=== PATIENT | female | born 1960 | race African-American/Black ===

== ENCOUNTER 2016-08-25 21:47 | Emergency (ER) | payer OTHER ==
[~2016-08-25] VITALS: Ht 160 cm; Wt 61.2 kg
[~2016-08-25 21:47] MED LIST: COLACE100 MG ORAL; ECOTRIN81 MG ORAL; IBUPROFEN600 MG ORAL; LEVAQUIN500 MG ORAL; LIPITOR10 MG ORAL
[2016-08-25] MEDS ORDERED: Tylenol #3 tab (300mg/30mg) ORAL ONE (23:00)
[2016-08-25] MEDS ORDERED: NKM (23:13)
[2016-08-26] MEDS ORDERED: ACETAMINOPHEN-1 EAC1 ORAL (00:15)
[2016-08-26] MEDS ORDERED: VENTOLIN HFA18 GM INH (00:15)
[2016-08-26 00:26] VITALS: BP_SYST 133; BP_SYST 141; BP_DIAS 63; BP_DIAS 68
--- NOTE | 2016-08-26 03:54 | Emergency Room Report ---
History of Present Illness General Chief Complaint: Upper Respiratory Illness Source: Patient Present Illness HPI 56 YO F presents with headache after accidental slip and fall in bathroom earlier. States LOC for "1 second." Not on ASA or AC. Denies blurry/change of vision, nausea/vomiting, focal weakness. Also, c/o cough for 4 weeks. Not asthmatic, non-smoker. Denies chest pain, SOB. Taking "Vitamin C" only. 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) Review of Systems All Other Systems: negative except mentioned in HPI Physical Exam Vital Signs Date Time Temp Pulse Resp B/P Pulse Ox O2 Delivery O2 Flow Rate FiO2 08/25/16 22:07 98.1 100 14 141/68 99 Room Air Sp02 EP Interpretation: reviewed, normal General Appearance: normal inspection, well appearing, no apparent distress, alert, GCS 15, non-toxic Head: normocephalic, atraumatic Eyes: bilateral eye EOMI, bilateral eye PERRL ENT: normal ENT inspection, hearing grossly normal, normal voice Neck: normal inspection, full range of motion, supple, no bony tend Respiratory: normal inspection, lungs clear, normal breath sounds, no rhonchi, no respiratory distress, no retraction, no accessory muscle use, no wheezing Cardiovascular #1: regular rate, rhythm, no edema Gastrointestinal: normal inspection, normal bowel sounds, non tender, soft, no guarding, no hernia Genitourinary: no CVA tenderness Neurologic: normal inspection, alert, oriented x3, responsive, 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 tested, motor strength/tone normal, speech normal Psychiatric: normal inspection, judgement/insight normal, mood/affect normal Skin: normal inspection, normal color, no rash Lymphatic: normal inspection Medical Decision Making Diagnostic Impression: Primary Impression: Contusion Qualified Codes: S00.93XA - Contusion of unspecified part of head, initial encounter Additional Impression: Upper respiratory infection Qualified Codes: J06.9 - Acute upper respiratory infection, unspecified; B97.89 - Other viral agents as the cause of diseases classified elsewhere ER Course 56 YO F with contusion to back of head. VSS. Afebrile. CT head negative for acute trauma Lungs CTAB, I doubt PNA Possible chronic bronchitis - Rx T#3, ventolin, PMD followup DC Home Last Vital Signs Date Time Temp Pulse Resp B/P Pulse Ox O2 Delivery O2 Flow Rate FiO2 08/26/16 00:26 98.1 14 141/68 99 Room Air 08/26/16 00:26 89 Status: improved Disposition: HOME, SELF-CARE Condition: Improved Scripts Albuterol Sulfate (VENTOLIN HFA) 18 Gm Hfa.aer.ad 2 PUFFS INH EVERY 6 HOURS, #18 GM 0 Refills Prov: GEORGINA RUFF M.D. 08/26/16 Acetaminophen With Codeine (T#3) (TYLENOL #3 TAB*) Y Tab 1 TAB ORAL Q8H Y for For Pain, #20 TAB Prov: GEORGINA RUFF M.D. 08/26/16 Patient Instructions: Upper Respiratory Infection, Adult, Concussion, Adult, [id number] Additional Instructions: -Take albuterol and/or tylenol #3 as needed for cough, chest pain - Follwo up with your doctor in 2-3 days GEORGINA RUFF M.D. Aug 26, 2016 03:54
--- NOTE | 2016-08-26 09:52 | Diagnostic Imaging Report ---
Indication: PAIN Technique: spiral acquisitions obtained through the brain. Angled axial and coronal 5 x 5 mm slices were reconstructed. No IV contrast utilized. Radiation dose was minimized using automated exposure control Total dose length product mGycm. CTDIvol(s) 70 mGy Comparison: none FINDINGS: No wound specialist image is provided. No acute hemorrhage or edema. No mass effect or midline shift. There is mild age-related enlargement of the ventricles and extra axial CSF spaces. There is periventricular deep white matter ischemic change. Questionable lacunar infarct versus artifact seen within the left nathaniel. Normal yan-white differentiation. Visualized orbits are unremarkable. Visualized sinuses are unremarkable. Intact calvarium. IMPRESSION: Chronic and age-related changes. Negative for acute intracranial bleed or mass effect This agrees with the preliminary interpretation provided overnight by [facility]. The CT scanner at [facility] is accredited by the [employer] and the scans are performed using protocols designed to limit radiation exposure to as low as reasonably achievable to attain images of sufficient resolution adequate for diagnostic evaluation
== END 2016-08-26 00:31 | disposition home or self-care (01) ==
LOC: EMR 22:48
DX: S00.83XA Contusion of other part of head, initial encounter (principal); W01.0XXA Fall on same level from slipping, tripping and stumbling without subsequent striking against object, initial encounter; Y92.002 Bathroom of unspecified non-institutional (private) residence as the place of occurrence of the external cause; J06.9 Acute upper respiratory infection, unspecified; R51 Headache; Z88.0 Allergy status to penicillin; Z88.6 Allergy status to analgesic agent
CPT/HCPCS: 70450; 99284

== ENCOUNTER 2018-09-19 14:12 | Emergency (ER) | payer OTHER ==
[~2018-09-19] VITALS: Ht 160 cm; Wt 64.4 kg
[~2018-09-19 14:12] MED LIST changes: +ACETAMINOPHEN-1 EAC1 ORAL; +CLINDAMYCIN HC300 MG ORAL; +MUPIROCIN22 GM TOPIC; +NKM; +VENTOLIN HFA18 GM INH
[2018-09-19 14:35] VITALS: BP 154/74
--- NOTE | 2018-09-19 14:35 | NUR ---
ED Nurse Note: PT WALKED IN TO ER TODAY FROM HOME. AOX4. PT C/O PERSISTENT PAINFUL BLISTER, PAIN 7/10 ON LEFT RING FINGER WELL RASH-LIKE APPEARANCE TO DORSAL SURFACE OF LEFT HAND. PT STATES SHE WAS SEEN AT [facility] EARLIER THIS MONTH FOR THE SAME SYMPTOMS.
--- NOTE | 2018-09-19 15:42 | Emergency Room Report ---
History of Present Illness General Chief Complaint: Skin Rash/Abscess Source: Patient Present Illness Allergies: Coded Allergies: PENICILLINS (Verified Allergy, Severe, Hives, 02/07/15) MORPHINE (Verified Adverse Reaction, Intermediate, Hallucinations, 02/07/15 ) Patient History Now: No Nursing Documentation-PMH Past Medical History: No History, Except For Hx Cardiac Problems: No Hx Gastrointestinal Problems: No Hx Neurological Problems: Yes Hx Cerebrovascular Accident: Yes - 2011 (left sided weakness) Physical Exam Vital Signs Date Time Temp Pulse Resp B/P (MAP) Pulse Ox O2 Delivery O2 Flow Rate FiO2 09/19/18 14:29 98.1 91 20 163/78 98 Room Air Medical Decision Making PA Attestation Dr. dumont is my supervising Physician whom patient management has been discussed with. Diagnostic Impression: Primary Impression: Burn Additional Impression: Rash and other nonspecific skin eruption ER Course Pt. presents to the ED c/o rash on [ ] x [ ] days Ddx considered but are not limited to cellulitis, scabies, shingles, varicella, dermatitis, urticaria, eczema, tinea, viral exanthem, SJS Vital signs: are WNL, pt. is afebrile H&PE are most consistent with [ ] ORDERS: none required at this time, the diagnosis is clinical ED INTERVENTIONS: None required at this time. DISCHARGE: At this time pt. is stable for d/c to home. Will provide printed patient care instructions, and any necessary prescriptions. Care plan and follow up instructions have been discussed with the patient prior to discharge. Last Vital Signs Date Time Temp Pulse Resp B/P (MAP) Pulse Ox O2 Delivery O2 Flow Rate FiO2 09/19/18 14:29 98.1 91 20 163/78 98 Room Air Disposition: HOME, SELF-CARE Condition: Stable Referrals: NON PHYSICIAN (PCP) Patient Instructions: Burn Care, [id number], Rash Additional Instructions: Take medications as directed. Follow up with a Primary Care Provider in 3-5 days for DERMATOLOGY REFERRAL , even if your symptoms have resolved. --Please review list of primary care clinics, if you do not already have a primary care provider Return sooner to ED if new symptoms occur, or current symptoms become worse. - Please note that this Emergency Department Report was dictated using [employer] Interactive[employer] collector technology software, occasionally this can lead to erroneous entry secondary to interpretation by the dictation equipment. Iliana Clark Sep 19, 2018 15:42
[2018-09-19] MEDS ORDERED: SILVADENE20 GM TP (15:45)
[2018-09-19] MEDS ORDERED: CEPHALEXIN500 MG ORAL (15:45)
--- NOTE | 2018-09-19 16:11 | NUR ---
ED Nurse Note: pt discharge instruction provided w/ prescription, pt wound care done prior to dischareg, pt advised to follow up with pcp, pt education done via discussion and handout, wristband removed, pt verbalized understanding and agrees with plan.
[2018-09-19 16:12] VITALS: BP 140/74
== END 2018-09-19 16:16 | disposition home or self-care (01) ==
LOC: EMR 15:23
DX: T23.232A Burn of second degree of multiple left fingers (nail), not including thumb, initial encounter (principal); X08.8XXA Exposure to other specified smoke, fire and flames, initial encounter; Y92.9 Unspecified place or not applicable; R21 Rash and other nonspecific skin eruption; I69.354 Hemiplegia and hemiparesis following cerebral infarction affecting left non-dominant side; Z88.0 Allergy status to penicillin; Z88.5 Allergy status to narcotic agent
CPT/HCPCS: 99282

== ENCOUNTER 2019-09-25 16:32 | Emergency (ER) | payer OTHER ==
[~2019-09-25] VITALS: Ht 160 cm; Wt 59.0 kg
[~2019-09-25 16:32] MED LIST changes: +CEPHALEXIN500 MG ORAL; +SILVADENE20 GM TP
--- NOTE | 2019-09-25 17:44 | NUR ---
ED Nurse Note:protable xray being done
--- NOTE | 2019-09-25 18:05 | NUR ---
ED Nurse Note:pt states smashed left hand in door a week ago and now nail to left ring fingernail is lifting off. pt states hadn is not painful and doesnt want the xray, pt refused it. abrasion noted to left hand pt has cleansed and wrapped it all week
[2019-09-25 18:08] VITALS: BP 164/87
[2019-09-25] MEDS ORDERED: Bacitracin Oint UD TOPIC ONE (18:30)
[2019-09-25] MEDS ORDERED: Lidocaine 2% MPF 5ml Vial INJ ONE (18:30)
--- NOTE | 2019-09-25 18:41 | NUR ---
ED Nurse Note: pt with fingernail soaking to prepare for removal
[2019-09-25 19:35] VITALS: BP 155/82
--- NOTE | 2019-09-25 19:35 | Emergency Room Report ---
History of Present Illness General Chief Complaint: Upper Extremity Injury Source: Patient Present Illness HPI 59-year-old female presents to the emergency department complaining of 3 out of 10 severity pain, tenderness and deformity to the left ring finger x4 days. Patient reports that she accidentally smashed her hand in a door. She reports that she had some bleeding from underneath the nail and now the nail appears to be falling off and is very tender. Patient reports pain is exacerbated upon palpation of the nail. Patient denies suspicion of fracture. She denies swelling. She reports several abrasions on the left hand as well. Patient states she is right-hand dominant. She denies bleeding at this time she denies nail discoloration. She denies paresthesias or loss of gross motor movement of the affected extremity. She denies any aggravating or relieving factors at this time. She is not UTD with tdap vaccination. 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 -The nail and finger is cleaned and prepped with Betadine solution. -Good anesthetic result is obtained -The nail is removed via blunt dissection using hemostats. -The nail bed is examined and there is no evidence of laceration -Direct pressure with sterile gauze was used to attain hemostasis. -Bacitracin is applied by the RN -Sterile dressing is applied by the RN -This patient tolerated the procedure well there were no complications Medical Decision Making PA Attestation Dr. Russell Is my supervising Physician whom patient management has been discussed with. Diagnostic Impression: Primary Impression: Nail avulsion, finger Qualified Codes: S61.309A - Unspecified open wound of unspecified finger with damage to nail, initial encounter ER Course 59-year-old female presents to the emergency department complaining of 3 out of 10 severity pain, tenderness and deformity to the left ring finger x4 days. Patient reports that she accidentally smashed her hand in a door. She reports that she had some bleeding from underneath the nail and now the nail appears to be falling off and is very tender. Patient reports pain is exacerbated upon palpation of the nail. Patient denies suspicion of fracture. She denies swelling. She reports several abrasions on the left hand as well. Patient states she is right-hand dominant. She denies bleeding at this time she denies nail discoloration. She denies paresthesias or loss of gross motor movement of the affected extremity. She denies any aggravating or relieving factors at this time. She is not UTD with tdap vaccination. Ddx considered but are not limited to Fracture, dislocation, contusion, nail avulsion , laceration Sprain/Strain/Spasm, eponychia, paronychia. Vital signs: are WNL, pt. is afebrile H&PE are most consistent with nail avulsion, possible secondary infection ORDERS: An apartment at this time as the diagnosis is clinical. ED INTERVENTIONS: --Tdap vaccination was declined by PT. --Finger nail removal of almost fully avulsed LRF nail-- Please see procedure note. After procedure Bacitracin and sterile dressing was applied by RN. DISCHARGE: At this time pt. is stable for d/c to home. Will provide printed patient care instructions, and any necessary prescriptions. Care plan and follow up instructions have been discussed with the patient prior to discharge. Last Vital Signs Date Time Temp Pulse Resp B/P (MAP) Pulse Ox O2 Delivery O2 Flow Rate FiO2 09/25/19 18:08 89 16 164/87 97 Room Air 09/25/19 17:08 97.9 Status: improved Disposition: HOME, SELF-CARE Condition: Stable Scripts Bacitracin/Polymyxin B Sulfate (BACITRACIN-POLYMYXIN OINTMENT) 28.35 Gm Oint...g. 1 APPLIC TP BID, #28.3 GM Prov: Iliana Clark 09/25/19 Patient Instructions: Fingernail or Toenail Removal, Care After, Nail Avulsion Additional Instructions: Take medications as directed. Follow up with a Primary Care Provider in 3-5 days, even if your symptoms have resolved. Return sooner to ED if new symptoms occur, or current symptoms become worse. - Please note that this Emergency Department Report was dictated using [employer]visor in circuit testing technology software, occasionally this can lead to erroneous entry secondary to interpretation by the dictation equipment. Iliana Clark Sep 25, 2019 19:35
[2019-09-25] MEDS ORDERED: BACITRACIN-P28.35 GM TP (19:36)
[2019-09-25 19:45] VITALS: BP 164/87
--- NOTE | 2019-09-25 19:45 | NUR ---
ER DISCHARGE NOTE: Patient is cleared to be discharged per ERMD, pt is aox4, on room air, with stable vital signs. pt was given dc and prescription instructions, pt was able to verbalize understanding, pt id band removed without complications. pt is able to ambulate with steady gait. pt took all belongings.
== END 2019-09-25 19:45 | disposition home or self-care (01) ==
LOC: EMR 17:50
DX: S61.305A Unspecified open wound of left ring finger with damage to nail, initial encounter (principal); W23.0XXA Caught, crushed, jammed, or pinched between moving objects, initial encounter; Y92.9 Unspecified place or not applicable; Z88.6 Allergy status to analgesic agent; Z88.0 Allergy status to penicillin; Z86.73 Personal history of transient ischemic attack (TIA), and cerebral infarction without residual deficits
CPT/HCPCS: 11730; Z7502; 99283